=== PATIENT | female | born 2005 | race Caucasian/White ===

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

== ENCOUNTER 2023-03-02 20:03 | Emergency (ER) | payer OTHER ==
[~2023-03-02] VITALS: Ht 154.9 cm; Wt 79.4 kg
[2023-03-02 20:31] LABS: BILIRUBIN Negative (Negative); BLOOD Negative (Negative); CLARITY Cloudy (Clear); COLOR Yellow (Yellow); GLUCOSE Negative (Negative); KETONE Negative (Negative); LEUKO ESTERASE Negative (Negative); NITRITE Negative (Negative); PH 7.5 (4.5-8.0); SPECIFIC GRAVITY 1.015 (1.001-1.030)
[2023-03-02 20:36] LABS: BASO # 0.1 10*3/uL (0.0-0.1); BASO % 0.7 % (0.0-1.0); EOS # 0.4 10*3/uL (0.0-0.4); EOS % 3.9 % (1.0-4.0); HEMATOCRIT 42.7 % (37.0-47.0); LYMPH # 2.8 10*3/uL (1.3-4.4); LYMPH % 28.1 % (27.0-41.0); MEAN CELL VOLUME 87.5 fl (81.0-99.0); MEAN CORPUSCULAR HGB 29.1 pg (27.0-31.0); MEAN CORPUSCULAR HGB CONC 33.3 g/dl (33.0-37.0); MEAN PLATELET VOLUME 9.8 fl (9.6-12.3); MONO # 0.6 10*3/uL (0.1-1.0); MONO % 5.9 % (3.0-9.0); NEUT # 6.1 10*3/uL (2.3-7.9); NEUT % 61.2 % (47.0-73.0); PLATELET COUNT AUTOMATED 334 10*3/uL (130-400); RED BLOOD COUNT 4.88 10*6/uL (4.10-5.10); RED CELL DISTRI WIDTH 13.2 % (0-14.5)
[2023-03-02 20:44] LABS: BACTERIA 3+
[2023-03-02 20:59] LABS: ALKALINE PHOSPHATASE 94 U/L (46-116); BUN 13 mg/dl (9-23); CHLORIDE 109 mmol/L (98-107); SGPT/ALT 59 U/L (5-49)
[2023-03-02] MEDS ORDERED: ONDANSETRON4 MG SL (21:07)
== END 2023-03-02 21:15 | disposition home or self-care (01) ==
LOC: ED 20:03
PROVIDERS: Nurse Practitioner Family
DX: R10.2 Pelvic and perineal pain (principal); R11.2 Nausea with vomiting, unspecified; R10.32 Left lower quadrant pain; F41.9 Anxiety disorder, unspecified; F32.A Depression, unspecified

== ENCOUNTER 2023-05-01 20:47 | Emergency (ER) | payer OTHER ==
[~2023-05-01] VITALS: Ht 154.9 cm; Wt 74.8 kg
[~2023-05-01 20:47] MED LIST changes: +ONDANSETRON4 MG SL
[2023-05-01] MEDS ORDERED: LAMICTAL25 MG PO (21:06)
[2023-05-01 21:29] LABS: BASO % 0.6 % (0.0-1.0); EOS # 0.3 10*3/uL (0.0-0.4); EOS % 4.6 % (1.0-4.0); LYMPH # 1.9 10*3/uL (1.3-4.4); LYMPH % 27.1 % (27.0-41.0); MEAN CELL VOLUME 87.4 fl (81.0-99.0); MEAN CORPUSCULAR HGB 28.5 pg (27.0-31.0); MEAN CORPUSCULAR HGB CONC 32.6 g/dl (33.0-37.0); MEAN PLATELET VOLUME 10.4 fl (9.6-12.3); MONO # 0.5 10*3/uL (0.1-1.0); MONO % 6.3 % (3.0-9.0); NEUT # 4.4 10*3/uL (2.3-7.9); NEUT % 61.3 % (47.0-73.0); PLATELET COUNT AUTOMATED 271 10*3/uL (130-400); RED BLOOD COUNT 4.92 10*6/uL (4.10-5.10); RED CELL DISTRI WIDTH 13.2 % (0-14.5); WHITE BLOOD COUNT 7.1 10*3/uL (4.8-10.8)
[2023-05-01 21:43] LABS: BILIRUBIN Negative (Negative); BLOOD Negative (Negative); CLARITY Clear (Clear); COLOR Yellow (Yellow); GLUCOSE Negative (Negative); KETONE Negative (Negative); LEUKO ESTERASE Negative (Negative); NITRITE Negative (Negative); SPECIFIC GRAVITY 1.025 (1.001-1.030)
[2023-05-01 21:57] LABS: ALKALINE PHOSPHATASE 75 U/L (46-116); BUN 7 mg/dl (9-23); CHLORIDE 110 mmol/L (98-107); LIPASE 32 U/L (12-53); POTASSIUM 3.5 mmol/L (3.4-5.1); SGPT/ALT 18 U/L (5-49); TOTAL PROTEIN 6.9 gm/dL (6.0-8.0)
[2023-05-01 21:57] LABS: EPITHELIAL CELLS 16-20; FINE GRANULAR CAST 0-2; MUCOUS 1+; RBC 0-2 rbc/hpf (0-2)
[2023-05-01] MEDS ORDERED: ONDANSETRON4 MG SL (23:16)
== END 2023-05-01 23:41 | disposition home or self-care (01) ==
LOC: ED 20:47
PROVIDERS: Internal Medicine
DX: K52.9 Noninfective gastroenteritis and colitis, unspecified (principal); F32.A Depression, unspecified; R11.2 Nausea with vomiting, unspecified

== ENCOUNTER 2023-06-01 14:18 | Emergency (ER) | payer OTHER ==
[~2023-06-01] VITALS: Ht 154.9 cm; Wt 73.5 kg
[~2023-06-01 14:18] MED LIST changes: +LAMICTAL25 MG PO
[2023-06-01 15:06] LABS: BILIRUBIN Negative (Negative); BLOOD Negative (Negative); CLARITY Clear (Clear); COLOR Yellow (Yellow); GLUCOSE Negative (Negative); KETONE Negative (Negative); LEUKO ESTERASE Negative (Negative); NITRITE Negative (Negative); PH 7.5 (4.5-8.0)
[2023-06-01 15:18] LABS: BACTERIA TRACE; MUCOUS 2+; WBC 0-2 wbc/hpf (0-5)
[2023-06-01 15:22] LABS: BASO % 0.5 % (0.0-1.0); EOS # 0.1 10*3/uL (0.0-0.4); EOS % 1.3 % (1.0-4.0); HEMATOCRIT 39.2 % (37.0-47.0); LYMPH # 1.7 10*3/uL (1.3-4.4); LYMPH % 23.1 % (27.0-41.0); MEAN CELL VOLUME 86.7 fl (81.0-99.0); MEAN CORPUSCULAR HGB 28.5 pg (27.0-31.0); MEAN CORPUSCULAR HGB CONC 32.9 g/dl (33.0-37.0); MEAN PLATELET VOLUME 10.6 fl (9.6-12.3); MONO # 0.6 10*3/uL (0.1-1.0); MONO % 7.9 % (3.0-9.0); NEUT % 66.9 % (47.0-73.0); PLATELET COUNT AUTOMATED 240 10*3/uL (130-400); RED BLOOD COUNT 4.52 10*6/uL (4.10-5.10); RED CELL DISTRI WIDTH 13.4 % (0-14.5); WHITE BLOOD COUNT 7.5 10*3/uL (4.8-10.8)
[2023-06-01 16:03] LABS: ALKALINE PHOSPHATASE 58 U/L (46-116); BUN 6 mg/dl (9-23); CHLORIDE 108 mmol/L (98-107); LIPASE 27 U/L (12-53); POTASSIUM 3.7 mmol/L (3.4-5.1); SGPT/ALT 17 U/L (5-49); TOTAL PROTEIN 6.1 gm/dL (6.0-8.0)
== END 2023-06-01 17:31 | disposition home or self-care (01) ==
LOC: ED 14:18
PROVIDERS: Nurse Practitioner
DX: O46.8X1 Other antepartum hemorrhage, first trimester (principal); F32.A Depression, unspecified; R10.2 Pelvic and perineal pain; Z3A.01 Less than 8 weeks gestation of pregnancy

== ENCOUNTER 2023-12-10 21:42 | Emergency (ER) | payer OTHER ==
[~2023-12-10] VITALS: Ht 154.9 cm; Wt 79.4 kg
[2023-12-10] MEDS ORDERED: SODIUM CHLORIDE 0.9% 1,000 ML IV ONE (22:05)
== END 2023-12-10 23:24 | disposition home or self-care (01) ==
LOC: ED 21:42
DX: O47.03 False labor before 37 completed weeks of gestation, third trimester (principal); F41.9 Anxiety disorder, unspecified; F32.A Depression, unspecified; Z3A.34 34 weeks gestation of pregnancy

== ENCOUNTER 2024-01-19 17:23 | Emergency (ER) | payer OTHER ==
[~2024-01-19] VITALS: Ht 154.9 cm; Wt 81.6 kg
[2024-01-19] MEDS ORDERED: IBUPROFEN 600 MG TAB PO ONE (18:15)
[2024-01-19 18:29] LABS: BASO % 0.2 % (0.0-1.0); EOS # 0.2 10*3/uL (0.0-0.4); EOS % 2.2 % (1.0-4.0); HEMATOCRIT 29.4 % (37.0-47.0); LYMPH # 1.6 10*3/uL (1.3-4.4); LYMPH % 18.4 % (27.0-41.0); MEAN CELL VOLUME 88.3 fl (81.0-99.0); MEAN CORPUSCULAR HGB 27.9 pg (27.0-31.0); MEAN CORPUSCULAR HGB CONC 31.6 g/dl (33.0-37.0); MEAN PLATELET VOLUME 10.4 fl (9.6-12.3); MONO # 0.3 10*3/uL (0.1-1.0); MONO % 3.6 % (3.0-9.0); NEUT # 6.3 10*3/uL (2.3-7.9); NEUT % 73.8 % (47.0-73.0); PLATELET COUNT AUTOMATED 225 10*3/uL (130-400); RED BLOOD COUNT 3.33 10*6/uL (4.10-5.10); RED CELL DISTRI WIDTH 15.9 % (0-14.5); WHITE BLOOD COUNT 8.5 10*3/uL (4.8-10.8)
[2024-01-19] MEDS ORDERED: IOHEXOL 300 MG/ML 100 ML VIAL IV ONE (18:40)
[2024-01-19 18:50] LABS: BUN 6 mg/dl (9-23); CHLORIDE 107 mmol/L (98-107)
== END 2024-01-19 19:16 | disposition home or self-care (01) ==
LOC: ED 17:23
PROVIDERS: Internal Medicine
DX: O89.4 Spinal and epidural anesthesia-induced headache during the puerperium (principal); F32.A Depression, unspecified; R10.2 Pelvic and perineal pain; Z87.891 Personal history of nicotine dependence

== ENCOUNTER 2024-02-03 15:54 | Emergency (ER) | payer OTHER ==
[~2024-02-03] VITALS: Ht 5638 cm; Wt 83.9 kg
[2024-02-03] MEDS ORDERED: ZONEGRAN25 MG PO (16:06)
[2024-02-03 16:23] LABS: BASO # 0.1 10*3/uL (0.0-0.1); BASO % 0.8 % (0.0-1.0); EOS # 0.1 10*3/uL (0.0-0.4); EOS % 0.7 % (1.0-4.0); HEMATOCRIT 40.9 % (37.0-47.0); LYMPH # 2.5 10*3/uL (1.3-4.4); LYMPH % 30.4 % (27.0-41.0); MEAN CELL VOLUME 88.9 fl (81.0-99.0); MEAN CORPUSCULAR HGB 27.8 pg (27.0-31.0); MEAN CORPUSCULAR HGB CONC 31.3 g/dl (33.0-37.0); MEAN PLATELET VOLUME 10.1 fl (9.6-12.3); MONO # 0.4 10*3/uL (0.1-1.0); MONO % 4.3 % (3.0-9.0); NEUT # 5.2 10*3/uL (2.3-7.9); NEUT % 63.4 % (47.0-73.0); PLATELET COUNT AUTOMATED 411 10*3/uL (130-400); RED CELL DISTRI WIDTH 15.1 % (0-14.5); WHITE BLOOD COUNT 8.3 10*3/uL (4.8-10.8)
[2024-02-03] MEDS ORDERED: Ondansetron Hydrochloride 4 MG TAB SL ONE (16:25)
[2024-02-03 16:41] LABS: ACT PARTIAL THROMBO TIME 24.6 SECONDS (20.0-32.1)
[2024-02-03 16:46] LABS: ALKALINE PHOSPHATASE 110 U/L (46-116); BUN 12 mg/dl (9-23); CHLORIDE 106 mmol/L (98-107); POTASSIUM 4.2 mmol/L (3.4-5.1); SGPT/ALT 20 U/L (5-49)
[2024-02-03] MEDS ORDERED: ACETAMINOPHEN 325 MG TAB PO ONE (17:40)
[2024-02-03 17:43] LABS: BILIRUBIN Negative (Negative); BLOOD 3+ (Negative); CLARITY Clear (Clear); COLOR Yellow (Yellow); GLUCOSE Negative (Negative); KETONE Negative (Negative); LEUKO ESTERASE 2+ (Negative); NITRITE Negative (Negative); SPECIFIC GRAVITY 1.015 (1.001-1.030)
[2024-02-03 17:49] LABS: URINE AMPHETAMINES Negative (1000ng/ml); URINE BARBITURATES Negative (200ng/ml); URINE BENZODIAZEPINES Negative (200ng/ml); URINE CANNABINOIDS (THC) Negative (50ng/ml); URINE COCAINE Negative (300ng/ml); URINE METHADONE Negative (300ng/ml); URINE OPIATES Negative (300ng/ml); URINE PHENCYCLIDINE Negative (25ng/ml)
[2024-02-03 17:56] LABS: BACTERIA 1+; RBC 51-100 rbc/hpf (0-2)
[2024-02-03] MEDS ORDERED: Sulfamethoxazole/Trimethopri 1 TAB TAB PO ONE (18:10)
[2024-02-03] MEDS ORDERED: SEPTDS PO (18:17)
== END 2024-02-03 18:27 | disposition home or self-care (01) ==
LOC: ED 15:54
PROVIDERS: Internal Medicine
DX: G40.909 Epilepsy, unspecified, not intractable, without status epilepticus (principal); F32.A Depression, unspecified; R10.2 Pelvic and perineal pain; Z87.891 Personal history of nicotine dependence

== ENCOUNTER 2024-03-05 21:20 | Emergency (ER) | payer OTHER ==
[~2024-03-05] VITALS: Ht 154.9 cm
[~2024-03-05 21:20] MED LIST changes: +SEPTDS PO; +ZONEGRAN25 MG PO
[2024-03-05 21:58] LABS: BASO # 0.1 10*3/uL (0.0-0.1); BASO % 0.5 % (0.0-1.0); EOS # 0.1 10*3/uL (0.0-0.4); EOS % 1.1 % (1.0-4.0); HEMATOCRIT 41.2 % (37.0-47.0); MEAN CELL VOLUME 86.6 fl (81.0-99.0); MEAN CORPUSCULAR HGB 27.5 pg (27.0-31.0); MEAN CORPUSCULAR HGB CONC 31.8 g/dl (33.0-37.0); MEAN PLATELET VOLUME 9.9 fl (9.6-12.3); MONO # 0.5 10*3/uL (0.1-1.0); MONO % 5.3 % (3.0-9.0); NEUT # 5.5 10*3/uL (2.3-7.9); NEUT % 54.7 % (47.0-73.0); PLATELET COUNT AUTOMATED 387 10*3/uL (130-400); RED BLOOD COUNT 4.76 10*6/uL (4.10-5.10); RED CELL DISTRI WIDTH 14.1 % (0-14.5); WHITE BLOOD COUNT 10.1 10*3/uL (4.8-10.8)
[2024-03-05 22:14] LABS: BUN 10 mg/dl (9-23); CHLORIDE 109 mmol/L (98-107); POTASSIUM 3.6 mmol/L (3.4-5.1)
[2024-03-05] MEDS ORDERED: ANUSOL-HC25 MG R (22:38)
== END 2024-03-05 22:45 | disposition home or self-care (01) ==
LOC: ED 21:20
PROVIDERS: Nurse Practitioner Family
DX: K64.8 Other hemorrhoids (principal); F41.9 Anxiety disorder, unspecified; F32.A Depression, unspecified; Z98.890 Other specified postprocedural states; Z79.2 Long term (current) use of antibiotics; Z79.899 Other long term (current) drug therapy

== ENCOUNTER 2024-09-11 05:17 | Emergency (ER) | payer OTHER ==
[~2024-09-11] VITALS: Ht 154.9 cm; Wt 89.8 kg
[~2024-09-11 05:17] MED LIST changes: +ANUSOL-HC25 MG R
[2024-09-11] MEDS ORDERED: AMOXICILLIN500 M2 PO (06:12)
[2024-09-11] MEDS ORDERED: AMOXICILLIN 500 MG CAP PO ONE (06:15)
== END 2024-09-11 06:27 | disposition home or self-care (01) ==
LOC: ED 05:17
DX: H66.91 Otitis media, unspecified, right ear (principal); F31.9 Bipolar disorder, unspecified; F41.9 Anxiety disorder, unspecified; Z79.899 Other long term (current) drug therapy

== ENCOUNTER → 2024-11-11 | Outpatient (CLI) | payer OTHER ==
[~2024-11-11] MED LIST changes: +AMOXICILLIN500 M2 PO
== END | disposition home or self-care (01) ==
LOC: US 14:30
PROVIDERS: ATTEND Physician Assistant
DX: N63.14 Unspecified lump in the right breast, lower inner quadrant (principal)

== ENCOUNTER 2024-11-30 20:30 | Emergency (ER) | payer OTHER ==
[~2024-11-30] VITALS: Wt 84.8 kg
[2024-11-30] MEDS ORDERED: BIRTH CONTROL IMPLAN (20:44)
[2024-11-30 20:53] LABS: BASO # 0.1 10*3/uL (0.0-0.1); BASO % 0.8 % (0.0-1.0); EOS # 0.0 10*3/uL (0.0-0.4); EOS % 0.4 % (1.0-4.0); MEAN CELL VOLUME 84.5 fl (81.0-99.0); MEAN CORPUSCULAR HGB 28.0 pg (27.0-31.0); MEAN PLATELET VOLUME 10.3 fl (9.6-12.3); MONO # 0.6 10*3/uL (0.1-1.0); MONO % 6.3 % (3.0-9.0); NEUT # 4.9 10*3/uL (2.3-7.9); NEUT % 55.4 % (47.0-73.0); NUCLEATED RED BLOOD CELL 0.0 % (0.0-0.0); NUCLEATED RED BLOOD CELL 0.0 10*3/uL (0.0-0.0); PLATELET COUNT AUTOMATED 345 10*3/uL (130-400); RED CELL DISTRI WIDTH 13.7 % (0-14.5)
[2024-11-30 21:07] LABS: BUN 11 mg/dl (9-23)
[2024-11-30 21:09] LABS: ETHYL ALCOHOL < 3.0 mg/dl (<3)
[2024-11-30 21:33] LABS: BILIRUBIN Negative (Negative); BLOOD 3+ (Negative); CLARITY Cloudy (Clear); COLOR Orange (Yellow); KETONE Negative (Negative); LEUKO ESTERASE 2+ (Negative); NITRITE Negative (Negative); PH 7.0 (4.5-8.0); SPECIFIC GRAVITY 1.015 (1.001-1.030); UROBILINOGEN 1.0 E.U./dl (0.0-1.0)
[2024-11-30 21:40] LABS: URINE AMPHETAMINES Negative (1000ng/ml); URINE BARBITURATES Negative (200ng/ml); URINE BENZODIAZEPINES Negative (200ng/ml); URINE CANNABINOIDS (THC) Negative (50ng/ml); URINE COCAINE Negative (300ng/ml); URINE METHADONE Negative (300ng/ml); URINE OPIATES Negative (300ng/ml); URINE PHENCYCLIDINE Negative (25ng/ml)
[2024-11-30 21:53] LABS: BACTERIA 3+; EPITHELIAL CELLS TNTC; MUCOUS 1+; WBC 31-40 wbc/hpf (0-5)
[2024-11-30] MEDS ORDERED: Ciprofloxacin Hydrochloride 500 MG TAB PO ONE (22:25)
[2024-11-30] MEDS ORDERED: CIPRO500 MG PO (22:27)
== END 2024-11-30 22:54 | disposition home or self-care (01) ==
LOC: ED 20:30
PROVIDERS: Internal Medicine
DX: N39.0 Urinary tract infection, site not specified (principal); R25.1 Tremor, unspecified; Z79.899 Other long term (current) drug therapy